=== PATIENT | male | born 1960 | race Caucasian/White ===

== ENCOUNTER → 2020-12-02 | Outpatient (CLI) | payer OTHER ==
[~2020-12-02] MED LIST: ACTOS45 MG PO; ADMELOG100 UNIT/1 SC; AFRIN15 M1; ALPRAZOLAM0.5 MG PO; AMLODIPINE BESY10 MG PO; ASPIRIN EC81 MG PO; BASAGLAR INSULIN SQ; BASAGLAR K100 UNIT/1 SC; CLARITIN10 M2 PO; COMBIVENT RESPIM4 GM INH; COMBIVENT0.074 GM/I INH; DIVALPROEX SOD500 MG PO; FENOFIBRATE160 MG PO; FLOMAX0.4 MG PO; FLUOXETINE HCL40 MG PO; GLUCAGON EMERGEN1 MG INJ; HUMALOG100 UNIT/2 SQ; HYDROCHLOROTH12.5 MG PO; HYDROCORTISONE 2.5% TOP; IPRAT-ALBUT 0.5-3 ML INH; JANUVIA100 MG PO; LANTUS INS100 UTS/M1 SQ; LISINOPRIL40 MG PO; LOSARTAN POTASS25 MG PO; METRONIDAZOLE 0.75% TOP; NEURONTIN 300300 MG PO; NEURONTIN600 MG PO; NITROGLYCERIN0.4 MG SL; NORCO 7.5-3251 EACH PO; NORVASC 5 MG TAB5 MG PO; NOVOLOG 10100 UNITS1 SQ; PROVENTIL HFA 61 INH INH; PROZAC40 MG PO; RISPERDAL3 MG PO; RISPERIDONE2 MG PO; SEROQUEL50 MG PO; ST. JOSEPH ASPI81 M1 PO; TIZANIDINE HCL4 MG PO; TRAZODONE HCL100 MG PO; TRULICITY0.75 MG/0. SQ; VENTOLIN HFA 66.7 GM INH; VITAMIN D21250 MCG PO; VITAMIN D250000 UNIT PO; ZOCOR20 MG PO; ZOFRAN ODT 4 MG4 MG PO
== END ==
LOC: KOH-I 08:47
DX: M51.36 Other intervertebral disc degeneration, lumbar region (principal); M16.10 Unilateral primary osteoarthritis, unspecified hip
CPT/HCPCS: 72100; 73522

== ENCOUNTER → 2021-01-14 | Day surgery (SDC) | payer OTHER | END | disposition home or self-care (01) | LOC: OR 06:37 | PROVIDERS: Surgery | PROC: 0DBF8ZX Excision of Right Large Intestine, Via Natural or Artificial Opening Endoscopic, Diagnostic (ICD-10-PCS; principal; 2021-01-14 09:10) | DX: Z12.11 Encounter for screening for malignant neoplasm of colon (principal); D12.2 Benign neoplasm of ascending colon; K57.30 Diverticulosis of large intestine without perforation or abscess without bleeding; I10 Essential (primary) hypertension; J44.9 Chronic obstructive pulmonary disease, unspecified; G47.30 Sleep apnea, unspecified; E11.9 Type 2 diabetes mellitus without complications; F17.210 Nicotine dependence, cigarettes, uncomplicated; M53.3 Sacrococcygeal disorders, not elsewhere classified; E66.9 Obesity, unspecified; Z68.42 Body mass index [BMI] 45.0-49.9, adult; Z79.82 Long term (current) use of aspirin; Z79.4 Long term (current) use of insulin; Z79.899 Other long term (current) drug therapy | CPT/HCPCS: 82962; J2704; J7120 ==

== ENCOUNTER 2021-06-01 15:02 | Emergency (ER) | payer OTHER ==
[2021-06-01] MEDS ORDERED: SILVADENE CREAM20 GM TOP (15:47)
== END 2021-06-01 16:04 | disposition home or self-care (01) ==
LOC: ER1 15:02
DX: T25.322A Burn of third degree of left foot, initial encounter (principal); T24.302A Burn of third degree of unspecified site of left lower limb, except ankle and foot, initial encounter; F17.210 Nicotine dependence, cigarettes, uncomplicated; I10 Essential (primary) hypertension; E66.9 Obesity, unspecified; E11.9 Type 2 diabetes mellitus without complications; X08.8XXA Exposure to other specified smoke, fire and flames, initial encounter; Y93.9 Activity, unspecified
CPT/HCPCS: 16020; 99283

== ENCOUNTER → 2021-06-17 | Outpatient (CLI) | payer OTHER ==
[~2021-06-17] MED LIST changes: +SILVADENE CREAM20 GM TOP
== END | disposition home or self-care (01) ==
LOC: WCC 07:38
DX: T24.331A Burn of third degree of right lower leg, initial encounter (principal); I10 Essential (primary) hypertension; J44.9 Chronic obstructive pulmonary disease, unspecified; E11.622 Type 2 diabetes mellitus with other skin ulcer; E11.40 Type 2 diabetes mellitus with diabetic neuropathy, unspecified; E66.01 Morbid (severe) obesity due to excess calories; R60.1 Generalized edema; Z68.42 Body mass index [BMI] 45.0-49.9, adult; Z79.4 Long term (current) use of insulin; Z72.0 Tobacco use

== ENCOUNTER → 2021-10-27 | Outpatient (CLI) | payer OTHER | LOC: US 10:02 | DX: R19.00 Intra-abdominal and pelvic swelling, mass and lump, unspecified site (principal) | CPT/HCPCS: 76705 ==

== ENCOUNTER → 2021-11-25 | Outpatient (CLI) | payer OTHER | LOC: WCC 08:27 | DX: T25.222A Burn of second degree of left foot, initial encounter (principal); I12.9 Hypertensive chronic kidney disease with stage 1 through stage 4 chronic kidney disease, or unspecified chronic kidney disease; E11.22 Type 2 diabetes mellitus with diabetic chronic kidney disease; N18.30 Chronic kidney disease, stage 3 unspecified; J44.9 Chronic obstructive pulmonary disease, unspecified; I25.10 Atherosclerotic heart disease of native coronary artery without angina pectoris; E11.40 Type 2 diabetes mellitus with diabetic neuropathy, unspecified; E11.621 Type 2 diabetes mellitus with foot ulcer; E66.01 Morbid (severe) obesity due to excess calories; E11.51 Type 2 diabetes mellitus with diabetic peripheral angiopathy without gangrene; Z72.0 Tobacco use; Z68.42 Body mass index [BMI] 45.0-49.9, adult; Z79.4 Long term (current) use of insulin; Z79.899 Other long term (current) drug therapy ==